=== PATIENT | male | born 2000 | race African-American/Black ===

== ENCOUNTER 2025-04-09 23:16 | Emergency (ER) | payer SELFPAY ==
[2025-04-09 23:18] VITALS: BP 140/62; TEMP 98; O2SAT 99
[2025-04-11] MEDS ORDERED: ONDA-282 PO (15:57)
== END 2025-04-10 01:05 | disposition left against medical advice (07) ==
LOC: M ED 23:16
DX: Z53.21 Procedure and treatment not carried out due to patient leaving prior to being seen by health care provider (principal)

== ENCOUNTER 2025-04-11 13:42 | Emergency (ER) | payer OTHER, MEDICAID ==
[~2025-04-11] VITALS: Ht 172.7 cm; Wt 62.8 kg
[2025-04-11 14:58] LABS: PLATELET COUNT, AUTOMATED 186 10^3/uL (150-450)
[2025-04-11] MEDS: NS (Normal Saline) 0.9% 1,000 ML IV ONE (15:11)
[2025-04-11] MEDS: ONDANSETRON 4MG/2ML VIAL IV ONE (15:11)
[2025-04-11 15:20] LABS: ALT/SGPT 46.0 U/L (7.0-40); AST/SGOT 58.0 U/L (<34)
[2025-04-11 15:23] LABS: ATYPICAL LYMPH 17 % (0-5); EOSINOPHILS 2 % (0-3); LYMPHOCYTES 29 % (16-44); MONOCYTES 13 % (0-5); NEUTROPHILS 37 % (28-66)
[2025-04-11 15:26] LABS: PLATELET ESTIMATE NORMAL (NORMAL)
[2025-04-11 15:28] LABS: KETONE, URINE AUTO RFX 1+ mg/dL (NEGATIVE); LEUKOCYTE ESTERASE UR AUTO RFX NEGATIVE (NEGATIVE); MUCUS, URINE RFX SMALL (NEGATIVE); NITRITE, URINE AUTO RFX NEGATIVE (NEGATIVE); RBC, URINE AUTO RFX 1 /HPF (0-3); SQUAM EPITHELIAL CELL UR AURFX 0 /HPF (0-6); WBC, URINE AUTO RFX 2 /HPF (0-3)
[2025-04-11] MEDS ORDERED: ONDA-282 PO (15:57)
[2025-04-11 16:17] VITALS: O2SAT 98
[2025-04-11 16:33] VITALS: BP 124/59; TEMP 99
== END 2025-04-11 16:58 | disposition home or self-care (01) ==
LOC: M ED 13:42
DX: J12.2 Parainfluenza virus pneumonia (principal); Z79.899 Other long term (current) drug therapy
CPT/HCPCS: 80047; 80076; 81001; 83690; 85025; 87486; 87581; 87633; 87798; 96374; 99284; J2405